=== PATIENT | male | born 1970 | race Caucasian/White ===

== ENCOUNTER 2023-06-30 11:44 | Emergency (ER) | payer BC, SELFPAY ==
[2023-06-30] VITALS (11 sets, daily range): BP systolic 114–179; BP diastolic 73–84; PULSE 94–121; RESP 18; TEMP 35.5; O2SAT 86–94; BMI 36.6
--- NOTE | 2023-06-30 12:16 | ED.GENADULT ---
HPI - General Adult General Date Seen: 06/30/23 Chief complaint: Skin/Abscess/Foreign Body Stated complaint: chest pain, had chicken this morning, feels stuck Time Seen by Provider: 06/30/23 12:14 History of Present Illness HPI narrative: This is a pleasant 52-year-old gentleman who is generally healthy. He thinks he probably has a history of reflux but has not been on therapy for it for quite some time. He is not a generally big problem. He presents to the ER this afternoon with his with concern for a piece of fried chicken stuck in his esophagus. He works the overnight shift and this morning after got home from work he was having a piece of chicken before he went to bed. He felt it get stuck in his throat he feels like it is low in his throat (gestures at the level of his collar bones). He has a lot of pain in his throat as well as in his upper chest and upper back. He is not really able to swallow. When the pain flares up and gets worse sometimes he feels a bit short of breath. He has been sweaty and sometimes nauseous. He thinks he has probably had trouble with food stuck in his throat off and on for several months. He says it probably happened once the month or so. His thinks it might actually happen more often than that. He has never had an endoscopy. No known history of esophageal stricture or diverticulum or cancer. He does not take any meds. No PPIs. No blood thinners. Related Data Allergies Allergy/AdvReac Type Severity Reaction Status Date / Time No Known Drug Allergies Allergy Verified 06/30/23 13:52 Exam Narrative: Exam Narrative: Constitutional: Appears well-developed and well-nourished. Alert. Conversant but uncomfortable. Non toxic. HENT: Head: Atraumatic. Nose: Nose normal. Mouth/Throat: Oral mucosa is clear and moist. no trismus. Pharynx normal. Tonsils symmetric. No tonsillar enlargement, erythema, or exudate. Phonation normal. Eyes: Conjunctivae normal. EOM normal. Pupils equal, round, and reactive to light. No scleral icterus. Neck: Normal range of motion. Neck supple. No tracheal deviation present. Cardiovascular: Normal rate, regular rhythm. No gallop. No friction rub. No murmur heard. Symmetric radial artery pulses Pulmonary/Chest: Effort normal. No stridor. No respiratory distress. No wheezes. No rales. No rhonchi . No tenderness. Abdominal: Soft. No distension. No mass. No tenderness. No rebound. No guarding. Musculoskeletal: RUE: Normal range of motion. No tenderness. No deformity LUE: Normal range of motion. No tenderness. No deformity RLE: Normal range of motion. No edema. No tenderness. No deformity LLE: Normal range of motion. No edema. No tenderness. No deformity Neurological: Alert and oriented to person, place, and time. Normal strength. CN II-VII intact. No sensory deficit. GCS eye subscore is 4. GCS verbal subscore is 5. GCS motor subscore is 6. Normal coordination Skin: Skin is warm and dry. No rash noted. No pallor. Normal capillary refill. Psychiatric: Normal mood. Normal affect allowing for discomfort. Const: Vital Signs, click to edit/add: Vital Signs - 24 hr 06/30/23 12:14 06/30/23 13:49 06/30/23 14:00 Temperature 95.9 F L Pulse Rate 121 H 116 H Pulse Rate [Right Pulse Oximeter] 94 Respiratory Rate 18 Blood Pressure Blood Pressure [Ri ght Upper Arm] 179/79 H Pulse Oximetry 93 86 L 91 Oxygen Delivery Me thod Room Air Oxygen Flow Rate 06/30/23 14:15 06/30/23 14:15 06/30/23 14:16 Temperature Pulse Rate 119 H 121 H Pulse Rate [Right Pulse Oximeter] Respiratory Rate Blood Pressure 124/84 Blood Pressure [Ri ght Upper Arm] Pulse Oximetry 94 94 92 Oxygen Delivery Me thod OxyMask OxyMask OxyMask Oxygen Flow Rate 5 5 5 06/30/23 14:30 06/30/23 14:35 06/30/23 14:36 Temperature Pulse Rate 117 H 121 H 119 H Pulse Rate [Right Pulse Oximeter] Respiratory Rate Blood Pressure Blood Pressure [Ri ght Upper Arm] Pulse Oximetry 93 93 94 Oxygen Delivery Me thod OxyMask OxyMask OxyMask Oxygen Flow Rate 5 5 5 06/30/23 14:45 06/30/23 15:00 06/30/23 15:01 Temperature Pulse Rate 115 H 111 H 108 H Pulse Rate [Right Pulse Oximeter] Respiratory Rate Blood Pressure 114/73 Blood Pressure [Ri ght Upper Arm] Pulse Oximetry 94 94 94 Oxygen Delivery Me thod OxyMask OxyMask OxyMask Oxygen Flow Rate 7 7 7 Course Course ED Course: We attempted passage of the chicken foreign body in esophagus using EZ gas. Patient swallowed the EZ gas well, and then had significant production of foam the came back up out of his soften guess. This was unsuccessful in dislodging the foreign body. Reevaluation(s) Reevaluation #1: Because of ongoing discomfort in his back, we ordered EKG and chest x-ray to evaluate for any signs of esophageal perforation. Reevaluation #2: I reviewed the patient's x-ray. I am suspicious that he may have a pneumomediastinum. Discussed over the phone with Radiology, Dr. Castaneda. He agrees there is pneumomediastinum. Will obtain CT for further characterization. At this time I also placed a call to [facility] to review with thoracic surgery. Ordered labs, IV antibiotics. Will also push images to [facility] (chest x-ray now, and CT images after they were obtained) further evaluation. Reevaluation #3: Recheck-inform patient and his of the pneumomediastinum, need for transfer. They request [facility], having had extensive experience that with family members. Additional Reevaluation(s): Recheck-still having discomfort after Dilaudid. Additional dose ordered. Nurses starting 2nd IV. Recheck-became hypoxic after the 2nd dose of Dilaudid. Put on OxyMask (more comfortable for the patient the nasal cannula). This point he is breathing easily with sats in the high 90s on 5 L. still alert. No signs of impending airway collapse or developing shock. Recheck-discussed with thoracic surgery, Dr. Corral, Thoracic Surgery, from [facility]. He was able to review the chest x-ray and CT and agrees that there is no mediastinum, likely due to esophageal perforation. He agrees with starting the IV antibiotics and also requests IV PPI-ordered. He will accept the patient to [facility]. The be transferred by ground. Recheck-still sinus tach at 1:14 a.m.. Blood pressure 120/60. Alert and oriented. Still somewhat sweaty and diaphoretic. Breathing fairly easily on 5 L OxyMask. O2 sat 93-94%. Updated on acceptance at [facility]. The patient and his were trying to figure a logistics for his to go and let out their dog for she goes with him to male. Awaiting dispatch for EMS. Vital Signs Vital signs: Initial Vital Signs Temperature 95.9 F L 06/30/23 12:14 Temperature Source Temporal Artery Scan 06/30/23 12:14 Pulse Rate 94 06/30/23 12:14 Pulse Rhythm Regular 06/30/23 12:14 Respiratory Rate 18 06/30/23 12:14 Blood Pressure 179/79 H 06/30/23 12:14 Blood Pressure Mean 112 H 06/30/23 12:14 Blood Pressure Position Semi-Fowlers 06/30/23 12:14 Pulse Oximetry 93 06/30/23 12:14 Oxygen Delivery Method Room Air 06/30/23 12:14 Vital Signs Temperature 95.9 F L 06/30/23 12:14 Pulse Rate 94 06/30/23 12:14 Respiratory Rate 18 06/30/23 12:14 Blood Pressure 179/79 H 06/30/23 12:14 Pulse Oximetry 93 06/30/23 12:14 Oxygen Delivery Method Room Air 06/30/23 12:14 Temperature 95.9 F L 06/30/23 12:14 Pulse Rate 108 H 06/30/23 15:01 Respiratory Rate 18 06/30/23 12:14 Blood Pressure 114/73 06/30/23 15:00 Pulse Oximetry 94 06/30/23 15:01 Oxygen Delivery Method OxyMask 06/30/23 15:01 Oxygen Flow Rate 7 06/30/23 15:01 Medications Administered Medications: Discontinued Medications Generic Name Dose Route Start Last Admin Trade Name Freq PRN Reason Stop Dose Admin Hydromorphone HCl 0.5 mg 06/30/23 12:34 06/30/23 12:50 Hydromorphone 0.5 Mg/0.5 Ml Inj IVP 0.5 mg Q1H PRN Administration Pain Hydromorphone HCl 0.5 mg 06/30/23 13:32 06/30/23 15:00 Hydromorphone 0.5 Mg/0.5 Ml Inj IVP 0.5 mg Q1H PRN Administration Pain Sodium Chloride 500 mls @ 500 mls/hr 06/30/23 12:34 06/30/23 14:05 0.9 % Sodium Chloride 500 Ml IV 06/30/23 13:33 Infused .Q1H ONE Infusion Piperacillin Sod/Tazobactam 100 mls @ 200 mls/hr 06/30/23 13:30 06/30/23 14:45 Sod 4.5 gm/ Sodium Chloride IVPB Infused Q6H GAYATRI Infusion Lactated Ringer's 1,000 ml 06/30/23 14:37 06/30/23 14:50 Lactated Ringers 1000 Ml IV 06/30/23 14:38 1,000 ml ONCE ONE Administration Ondansetron HCl 4 mg 06/30/23 12:34 06/30/23 12:50 Ondansetron 2 Mg/Ml Inj IVP 06/30/23 12:35 4 mg ONCE ONE Administration Pantoprazole Sodium 80 mg 06/30/23 14:20 06/30/23 14:46 Pantoprazole Sodium 40 Mg Inj IVP 06/30/23 14:21 80 mg ONCE ONE Administration Simethicone/Sodium Bicarb/Citric Ac 1 each 06/30/23 12:20 06/30/23 12:25 Simethicone/Sod Bicarb/Cit Ac 1 Each Gran.Ef.Pk PO 06/30/23 12:21 1 each ONCE ONE Administration Medical Decision Making MDM Narrative Medical decision making narrative: This patient presents for evaluation of chest discomfort posterior neck and upper back pain with a piece of fried chicken stuck in his esophagus. He has had similar food boluses stuck in the past which have always resolved at home. This is the 1st episode for which he has had come to the ER. Symptoms consistent with esophageal bolus/foreign body esophagus. He was protecting his airway. Fluid bolus appear to be at the level of the thoracic inlet. We attempted to facilitate passage into the ED gas. This was unsuccessful. Given ongoing discomfort, we did do further workup with EKG which showed no definite ischemia and chest x-ray to look for possible esophageal perforation. Chest x-ray confirmed some pneumomediastinum. We did obtain laboratory workup and CT scan confirming widespread pneumomediastinum, presumably due to esophageal perforation. Blood pressure is stable but he does have sinus tachycardia. IV fluids administered. Started on antibiotics and PPI. Subsequently labs came back showing white count of 21 and hemoglobin of 17.8. Platelet count also elevated 442. Lactic acid 2.7. While here in the ER he did receive serial doses of law did for pain in his chest, upper back, and into his neck. With this he did develop hypoxia requiring oxygen supplementation. Otherwise stable blood pressure. Heme remained with sinus tachycardia. Despite fairly widespread pneumomediastinum, he did not have external exam finding such as CT subcutaneous crepitus, or auscultation findings of pneumomediastinum. He will require transfer to a facility with the thoracic surgery in case he needs surgery. They requested male. Discussed with [facility] thoracic surgery who accepted. He will be transferred by ground EMS. Lab Data Labs: Lab Results 06/30/23 Range/Units 13:32 WBC 21.16 H (4.50-11.00) K/uL RBC 5.96 H (4.30-5.90) m/uL Hgb 17.8 H (13.5-17.5) gm/dL Hct 52.6 (37.0-53.0) % MCV 88 (80-100) fL MCH 30 (26-34) pg MCHC 34 (32-36) gm/dL RDW Coeff of Hardeep 12.8 (11.5-15.5) % Plt Count 442 H (140-440) K/uL Neut % (Auto) 93.8 H (42.0-72.0) % Lymph % (Auto) 3.4 L (20-44) % [place] % (Auto) 2.5 (0.0-11.0) % Eos % (Auto) 0.0 (0.0-7.0) % Baso % (Auto) 0.0 (0.0-3.0) % Neut # (Auto) 19.80 H (1.7-7.0) K/uL Lymph # (Auto) 0.70 L (0.90-2.90) K/uL [place] # (Auto) 0.50 (0.00-0.90) K/UL Eos # (Auto) 0.00 (0.00-0.50) K/uL Baso # (Auto) 0.00 (0.00-0.30) K/uL Abs Immat Gran (auto) 0.10 (0.00-0.30) K/uL Imm/Tot Granulo (auto) 0.3 % Sodium 138 (135-149) mmol/L Potassium 3.5 L (3.6-5.1) mmol/L Chloride 106 (96-114) mmol/L Carbon Dioxide 22 (20-32) mmol/L Anion Gap 10 (7-15) mEq/L BUN 15 (7-30) mg/dL Creatinine 1.3 (0.5-1.5) mg/dL Estimated Creat Clear 78.16 Estimated GFR 67 ml/min Glucose 186 H (60-115) mg/dL Lactate 2.7 H (0.5-1.9) mmol/L Calcium 8.5 (8.4-10.6) mg/dL ECG Data Attestation: I personally reviewed and interpreted this ECG as follows: Interpretation: Sinus tachycardia with PVCs Rate: 114 UT: 144 QRS axis: Left axis deviation. ST segment/T wave: No ST segment elevation or depression. Artifact in baseline QTc: 474 Discharge Plan Discharge Clinical Impression: Food impaction of esophagus, Esophageal perforation Patient Disposition: Xfer [facility] Forms: [facility]
[2023-06-30] MEDS: SIMETHICONE/SOD BICARB/CIT AC 1 EACH GRAN.EF.PK PO (12:25)
--- NOTE | 2023-06-30 12:34 | XR_ITS ---
Patient: JUSTIN CAIN Facility:?[facility] Patient ID:?[id number] Site Patient ID:?[id number]. Site :?[id number] Study:?XRay-Chest -06/30/2023 12:49:02 PM Ordering Physician:?Jani Silva Final Report: INDICATION: Chest pain, chicken and throat TECHNIQUE: Chest 1 view. COMPARISON: None. FINDINGS/IMPRESSION: Possible pneumomediastinum as well as subcutaneous air within the base of the neck. No definite pneumothorax is visualized. Negative for focal consolidation. Recommend further characterization with CT of the chest. Dictated by Sherry Corrales MD @ 06/30/2023 1:30:21 PM Dictated by: Sherry Corrales MD @ 06/30/2023 13:30:31 Signed by:?Sherry Corrales MD @06/30/2023 1:30:31 PM (Electronic Signature
[2023-06-30] MEDS: HYDROmorphone 0.5 mg/0.5 ml inj IVP ×3 (12:50→15:00)
[2023-06-30] MEDS: ONDANSETRON 2 MG/ML inj 4 MG IVP (12:50)
[2023-06-30] MEDS: 0.9 % SODIUM CHLORIDE 500 ML 500 ML IV (12:50)
--- NOTE | 2023-06-30 13:17 | CT_ITS ---
Patient: JUSTIN CAIN Facility:?[facility] Patient ID:?[id number] Site Patient ID:?[id number] Site :?[id number] Study:?CT-Chest 75 CC ISOVUE 370-06/30/2023 1:43:53 PM Ordering Physician:?DR FOSTER Final Report: INDICATION: Abnormal chest x-ray. COMPARISON: Plain films same date. TECHNIQUE: 75 mL Isovue-370 IV contrast. FINDINGS: Extensive pneumomediastinum extending up from the retroperitoneum and through the right supraclavicular fossa into the chest wall and likely into the right upper arm and neck. No pneumothorax. Small bilateral dependent pleural effusions. Calcified granuloma lateral right upper lobe. Calcified granuloma left upper lobe. Calcified granulomas in the left hilum. Some calcified granulomas in the right hilum. Motion degrades assessment of lung parenchyma to the bases. Peripheral pulmonary vascular caliber may be upper normal. No focal consolidation appreciated. No significant finding in the upper abdomen other than the retroperitoneal air. IMPRESSION: 1. Moderately extensive mediastinal, retroperitoneal and subcutaneous emphysema right supraclavicular fossa. Per report from Dr. Foster patient had food stuck in the throat and was given EZ gas which likely accounts for the extensive extraluminal air. 2. Small bilateral pleural effusions. 3. Sequela prior granulomatous infection. Please note that all CT scans at this facility use dose modulation, iterative reconstruction, and/or weight-based dosing when appropriate to reduce radiation dose to as low as reasonably achievable. Dictated by Mike Roa MD @ 06/30/2023 2:31:55 PM Signed by:?Mike Roa MD @06/30/2023 2:31:55 PM (Electronic Signature)
[2023-06-30] MEDS: PIPERACILLIN/TAZOBACTAM 4.5 GM in 0.9 % SODIUM CHLORIDE Mini-bag 100 ML IVPB (14:05)
[2023-06-30 14:09] LABS: Lactate* 2.7 mmol/L (0.5-1.9)
[2023-06-30 14:14] LABS: Hematocrit 52.6 % (37.0-53.0); Hemoglobin* 17.8 gm/dL (13.5-17.5); Immature Granulocytes Pct Auto 0.3 %; Lymphocytes Percent Auto 3.4 % (20-44); Mean Corpuscular HGB Conc 34 gm/dL (32-36); Mean Corpuscular Hemoglobin 30 pg (26-34); Mean Corpuscular Volume 88 fL (80-100); Monocytes Percent Auto 2.5 % (0.0-11.0); Neutrophils Percent Auto 93.8 % (42.0-72.0); Platelet Count* 442 K/uL (140-440); RDW Coefficient of Variation % 12.8 % (11.5-15.5); Red Blood Count 5.96 m/uL (4.30-5.90); White Blood Count* 21.16 K/uL (4.50-11.00)
[2023-06-30 14:19] LABS: Slide Review Reflex No
[2023-06-30 14:34] LABS: Chloride* 106 mmol/L (96-114); Potassium* 3.5 mmol/L (3.6-5.1); Sodium* 138 mmol/L (135-149)
[2023-06-30 14:37] LABS: Anion Gap 10 mEq/L (7-15); Blood Urea Nitrogen* 15 mg/dL (7-30); Carbon Dioxide* 22 mmol/L (20-32); Creatinine* 1.3 mg/dL (0.5-1.5); Est. Creatinine Clearance* 78.16; Estimated Glomerular Filt Rate 67 ml/min
[2023-06-30 14:38] LABS: Calcium* 8.5 mg/dL (8.4-10.6); Glucose* 186 mg/dL (60-115)
[2023-06-30] MEDS: PANTOPRAZOLE SODIUM 40 MG INJ 80 MG IVP (14:46)
[2023-06-30] MEDS: LACTATED RINGERS 1000 ML IV (14:50)
== END 2023-06-30 15:17 | disposition short-term general hospital (02) ==
PROVIDERS: Emergency Provider Emergency Medicine; PCP Family Medicine
DX: T18.128A Food in esophagus causing other injury, initial encounter (principal); K22.3 Perforation of esophagus
CPT/HCPCS: 36415; 71045; 71260; 80048; 83605; 85025; 93005; 94761; 96365; 96375; 99285; 99291; C9113; J1170; J2405; J2543; J7030; J7120; Q9967

== ENCOUNTER 2023-06-30 14:55 | Outpatient (CLI) | payer BC, SELFPAY | END 2023-06-30 14:56 | disposition home or self-care (01) | LOC: AMB 07-04 06:17 | PROVIDERS: PCP Family Medicine; Visit Provider Family Medicine | DX: K22.3 Perforation of esophagus (principal) | CPT/HCPCS: A0425; A0434 ==